=== PATIENT | male | born 1975 | race Caucasian/White ===

== ENCOUNTER 2017-01-17 13:13 | Observation (INO) | payer OTHER ==
[~2017-01-17] VITALS: Ht 188 cm; Wt 97.7 kg
[2017-01-17 13:14] VITALS: BP 140/97; PULSE 80; RESP 18; TEMP 98.7; O2SAT 100
[2017-01-17 13:51] VITALS: BP 155/100; PULSE 71; RESP 20; O2SAT 100
--- NOTE | 2017-01-17 13:57 | RADRPT ---
EXAM DATE/TIME: 01/17/2017 13:35 [place] COMPARISON: No previous studies available for comparison. INDICATIONS : Chest pain and tingling sensation in arms and legs during treadmill workout. MEDICAL HISTORY : Former smoker. SURGICAL HISTORY : None. ENCOUNTER: Initial ACUITY: 1 day PAIN SCORE: 4/10 LOCATION: middle chest FINDINGS: PA and lateral views of the chest demonstrate the lungs to be symmetrically aerated without evidence of mass, infiltrate or effusion. The cardiomediastinal contours are unremarkable. Osseous structure s are intact. CONCLUSION: Normal examination. Alvaro Galeana Jr., MD on January 17, 2017 at 13:53 Board Certified Radiologist. This report was verified electronically.
--- NOTE | 2017-01-17 13:57 | PD ---
HPI Chief Complaint: Chest Pain Time Seen by Provider: 13:49 Travel History International Travel<30 days: No Contact w/Intl Traveler<30days: No Traveled to known affect area: No History of Present Illness HPI 41 yo m presents to the ED with a chief complaint of chest pain that began while he was on the elliptical machine at the gym He states that the pain was located in the center of his chest without radiation. He did have associated numbness in bilateral arms and legs. No nausea vomiting or diarrhea, no headache or vision change. No pain radiating to the back. No shortness of breath. The patient reports that he has family history in his grandfather and uncle of heart disease. No personal history of coronary artery disease. [facility] Social History Tobacco Use: No Allergies-Medications (Allergen,Severity, Reaction): Coded Allergies: No Known Allergies (Unverified , 01/17/17) Reported Meds & Prescriptions Reported Meds & Active Scripts Active No Active Prescriptions or Reported Medications Review of Systems Except as stated in HPI: all other systems reviewed are Neg General / Constitutional: No: Fever, Chills HENT: No: Headaches, Lightheadedness Cardiovascular: Positive: Chest Pain or Discomfort, No: Irregular Rhythm Respiratory: No: Cough, Shortness of Breath Gastrointestinal: No: Nausea, Vomiting, Abdominal Pain Musculoskeletal: No: Weakness, Pain Neurologic: Positive: Other (reports numbness and tingling to his arms and legs when he had the discomfort.), No: Headache Physical Exam Narrative GENERAL: patient is laying in bed in no acute distress. SKIN: Warm and dry. HEAD: Atraumatic. Normocephalic. EYES: Pupils equal and round. No scleral icterus. No injection or drainage. ENT: No nasal bleeding or discharge. Mucous membranes pink and moist. NECK: Trachea midline. Supple. CARDIOVASCULAR: Regular rate and rhythm. RESPIRATORY: No accessory muscle use. Clear to auscultation. Breath sounds equal bilaterally. GASTROINTESTINAL: Abdomen soft, non-tender, nondistended. Hepatic and splenic margins not palpable. MUSCULOSKELETAL: Extremities without clubbing, cyanosis, or edema. No obvious deformities. NEUROLOGICAL: Awake and alert. No obvious cranial nerve deficits. Motor grossly within normal limits. Five out of 5 muscle strength in the arms and legs. Normal speech. PSYCHIATRIC: Appropriate mood and affect; insight and judgment normal. Data Data Last Documented VS Vital Signs Date Time Temp Pulse Resp B/P (MAP) Pulse Ox O2 Delivery O2 Flow Rate FiO2 01/17/17 16:05 71 15 131/81 (98) 99 Room Air 01/17/17 13:51 2.00 01/17/17 13:14 98.7 Orders Orders Electrocardiogram (01/17/17 13:26) Basic Metabolic Panel (Bmp) (01/17/17 13:26) Ckmb (Isoenzyme) Profile (01/17/17 13:26) Complete Blood Count With Diff (01/17/17 13:26) Magnesium (Mg) (01/17/17 13:26) Prothrombin Time / Inr (Pt) (01/17/17 13:26) Act Partial Throm Time (Ptt) (01/17/17 13:26) Troponin I (01/17/17 13:26) Chest, Pa & Lat (01/17/17 13:26) CKMB (01/17/17 13:40) CKMB% (01/17/17 13:40) Admit Order (Ed Use Only) (01/17/17 17:23) Activity Bed Rest With Brp (01/17/17 17:23) Vital Signs (Adult) Q4H (01/17/17 17:23) Cardiac Rhythm .As Directed (01/17/17 17:23) Notify Dr: Other .PRN (01/17/17 17:23) Notify DrPola Parameters (01/17/17 17:23) Resp Oxygen Nasal Cannula (01/17/17 ) Ckmb (Isoenzyme) Profile (01/17/17 17:23) Ckmb (Isoenzyme) Profile (01/17/17 20:23) Troponin I (01/17/17 17:23) Troponin I (01/17/17 20:23) Electrocardiogram (01/17/17 17:23) Electrocardiogram (01/17/17 20:23) ^ Obtain (01/17/17 17:23) Sodium Chloride 0.9% Flush (Ns Flush) (01/17/17 17:30) Sodium Chloride 0.9% Flush (Ns Flush) (01/17/17 21:00) 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 / Telemetry TRISTA.Q8H (01/17/17 17:23) Labs Laboratory Tests Test 01/17/17 13:40 White Blood Count 7.8 TH/MM3 Red Blood Count 4.39 MIL/MM3 Hemoglobin 13.7 GM/DL Hematocrit 39.8 % Mean Corpuscular Volume 90.6 FL Mean Corpuscular Hemoglobin 31.3 PG Mean Corpuscular Hemoglobin Concent 34.5 % Red Cell Distribution Width 12.7 % Platelet Count 246 TH/MM3 Mean Platelet Volume 8.0 FL Neutrophils (%) (Auto) 71.3 % Lymphocytes (%) (Auto) 21.4 % Monocytes (%) (Auto) 6.1 % Eosinophils (%) (Auto) 0.7 % Basophils (%) (Auto) 0.5 % Neutrophils # (Auto) 5.6 TH/MM3 Lymphocytes # (Auto) 1.7 TH/MM3 Monocytes # (Auto) 0.5 TH/MM3 Eosinophils # (Auto) 0.1 TH/MM3 Basophils # (Auto) 0.0 TH/MM3 CBC Comment DIFF FINAL Differential Comment Prothrombin Time 10.9 SEC Prothromb Time International Ratio 1.0 RATIO Activated Partial Thromboplast Time 26.8 SEC Blood Urea Nitrogen 14 MG/DL Creatinine 1.08 MG/DL Random Glucose 89 MG/DL Calcium Level 8.8 MG/DL Magnesium Level 2.0 MG/DL Sodium Level 138 MEQ/L Potassium Level 4.1 MEQ/L Chloride Level 103 MEQ/L Carbon Dioxide Level 28.4 MEQ/L Anion Gap 7 MEQ/L Estimat Glomerular Filtration Rate 75 ML/MIN Total Creatine Kinase 174 U/L Creatine Kinase MB 1.8 NG/ML Troponin I LESS THAN 0.02 NG/ML MDM Medical Decision Making Medical Screen Exam Complete: Yes Emergency Medical Condition: Yes Differential Diagnosis ACS unlikely, Angina, Costochondritis, intercostal spasm, Unlikely: thoracic aortic aneurysm dissection, pancreatitis, GERD Narrative Course ASA, Nitroglycerine, CXR, EKG, CBC, CMP, Troponin I, CKMB sent. 41-year-old male presents today with complaints of chest pressure while working out on his elliptical exercise equipment. The patient had associated bilateral numbness and tingling to his arms and legs during this event. The patient is chest pain- free now at this time. He has no personal cardiac risk factors. The patient does have family history with grandfather and uncle with coronary artery disease. Given his exertional onset of chest discomfort, we will admit him to the chest pain center for rule out protocol. Diagnosis Primary Impression: Exertional chest pain Additional Impression: bilateral upper and lower extremity paresthesias, resolved Admitting Information Admitting Physician Requests: Observation Scripts No Active Prescriptions or Reported Meds Aníbal Foster MD Jan 17, 2017 13:57
[2017-01-17 14:08] LABS: AUTOMATED NEUTROPHIL # 5.6 TH/MM3 (1.8-7.7); BASOPHIL % 0.5 % (0.0-2.0); EOSINOPHIL # 0.1 TH/MM3 (0-0.4); EOSINOPHIL % 0.7 % (0.0-4.0); HEMATOCRIT 39.8 % (39.0-51.0); HEMO FLAGS DIFF FINAL; LYMPH % 21.4 % (9.0-44.0); LYMPHOCYTE # 1.7 TH/MM3 (1.0-4.8); MEAN CELL VOLUME 90.6 FL (80.0-100.0); MEAN CORPUSCULAR HEMOGLOBIN 31.3 PG (27.0-34.0); MEAN CORPUSCULAR HGB CONC 34.5 % (32.0-36.0); MONO % 6.1 % (0.0-8.0); NEUT % 71.3 % (16.0-70.0); PLATELET COUNT 246 TH/MM3 (150-450); RED BLOOD COUNT 4.39 MIL/MM3 (4.50-5.90); RED CELL DISTRIBUTION WIDTH 12.7 % (11.6-17.2); WHITE BLOOD COUNT 7.8 TH/MM3 (4.0-11.0)
[2017-01-17 14:16] LABS: APTT (PATIENT) 26.8 SEC (24.3-30.1); PROTHROMBIN TIME - PATIENT 10.9 SEC (9.8-11.6)
[2017-01-17 15:31] LABS: CHLORIDE 103 MEQ/L (98-107); POTASSIUM 4.1 MEQ/L (3.5-5.1); SODIUM (NA) 138 MEQ/L (136-145)
[2017-01-17 15:49] LABS: ANION GAP 7 MEQ/L (5-15); BICARBONATE 28.4 MEQ/L (21.0-32.0); BLOOD UREA NITROGEN 14 MG/DL (7-18); GLOMERULAR FILTRATION RATE 75 ML/MIN (>89)
[2017-01-17 16:03] LABS: CREATINE KINASE 174 U/L (39-308)
[2017-01-17 16:05] VITALS: BP 131/81; PULSE 71; RESP 15; O2SAT 99
[2017-01-17 16:16] LABS: CKMB 1.8 NG/ML (0.5-3.6)
[2017-01-17] MEDS ORDERED: SODIUM CHLORIDE 0.9% FLUSH 10 ML FLUSH IV FLUSH PRN (17:30)
[2017-01-17 18:20] VITALS: BP 133/84
[2017-01-17 18:53] LABS: CREATINE KINASE 153 U/L (39-308)
[2017-01-17 19:05] LABS: CKMB 1.7 NG/ML (0.5-3.6)
[2017-01-17] MEDS ORDERED: SODIUM CHLORIDE 0.9% FLUSH 10 ML FLUSH IV FLUSH SCH (21:00)
[2017-01-17 21:49] VITALS: BP_SYST 135; BP_SYST 148; BP_DIAS 75; BP_DIAS 96; PULSE 61; PULSE 93; RESP 17; TEMP 98; TEMP 98.8; O2SAT 95; O2SAT 97
[2017-01-17 22:33] LABS: CREATINE KINASE 129 U/L (39-308)
[2017-01-17 22:45] LABS: CKMB 1.3 NG/ML (0.5-3.6)
[2017-01-17 23:27] VITALS: BP 122/79; PULSE 61; RESP 18; TEMP 98; O2SAT 96
[2017-01-18] VITALS: PULSE 60
[2017-01-18 03:39] VITALS: PULSE 78
[2017-01-18 04:37] VITALS: BP 134/84; PULSE 68; RESP 18; TEMP 97.7; O2SAT 96
[2017-01-18 08:15] VITALS: BP 140/94; PULSE 68; RESP 18; TEMP 98.1; O2SAT 97
--- NOTE | 2017-01-18 10:01 | HHI.HP ---
HPI Primary Care Physician No Primary Care Physician Chief Complaint Chest pain History of Present Illness This is a 41-year-old male that presents to ED via private vehicle with a complaint of developing a chest discomfort in the center of his chest while he was working out on an elliptical machine. States his heart rate got into the 130s. The discomfort in his chest lasted about 2 hours. He also had sensation of lightheadedness and tingling in his hands and feet which the symptoms seem to last about 5 minutes. He really was not short of breath, nauseous, or diaphoretic. This symptoms have not recurred. Exercise regularly and does not have a she is usually. Denies prior cardiac workup. [place] recent illness. Denies fevers or chills. Review of Systems General: Patient denies fevers, chills recent, and recent travel HEENT: Patient denies headache, sore throat, difficulty swallowing. Cardiovascular: Has the chest discomfort as mentioned above. Denies sensation of heart beating rapidly or irregularly. No syncope. Denies diaphoresis. Respiratory: Denies shortness of breath or inspirational chest discomfort. Denies coughing wheezing or hemoptysis. GI: Patient denies nausea, vomiting, diarrhea, abdominal pain, bloody stools. Musculoskeletal: Patient denies joint pain or edema. Denies calf pain or edema. Neurovascular: Had tingling in his hands and feet and felt lightheaded. Patient denies numbness, weakness in extremities. Denies headache. Endocrine: Denies polyuria and polydipsia. Hematologic: Denies easy bruising. Skin: Denies rash or itching. Past Family Social History Allergies: Coded Allergies: No Known Allergies (Unverified , 01/17/17) Past Medical History Denies hypertension, hyperlipidemia, diabetes, and CAD. Past Surgical History 2 back surgeries. Reported Medications Reported Meds & Active Scripts Active No Active Prescriptions or Reported Medications Active Ordered Medications Current Medications Medications (Trade) Dose Ordered Sig/Marc Route Start Time Stop Time Status Last Admin (NS Flush) 2 ml UNSCH PRN IV FLUSH 01/17/17 17:30 (NS Flush) 2 ml BID IV FLUSH 01/17/17 21:00 01/17/17 21:00 Family History Denies family history of CAD. Social History Patient states that he has had no cigarettes for about 9 months but prior that he rarely smoked. He states he may have 1 cigarette per month at most. Has on average a couple glasses of wine a week. Denies illicit drugs. 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 Physical Exam Vital Signs Vital Signs Date Time Temp Pulse Resp B/P (MAP) Pulse Ox O2 Delivery O2 Flow Rate FiO2 01/18/17 08:15 98.1 68 18 140/94 (109) 97 01/18/17 04:37 97.7 68 18 134/84 (101) 96 01/18/17 03:39 78 01/18/17 01:46 21 01/18/17 00:00 60 01/17/17 23:27 98.0 61 18 122/79 (93) 96 01/17/17 21:49 98.0 61 17 148/96 (113) 97 01/17/17 18:20 75 16 133/84 (100) 98 01/17/17 16:05 71 15 131/81 (98) 99 Room Air 01/17/17 13:51 71 20 155/100 (118) 100 Nasal Cannula 2.00 01/17/17 13:14 98.7 80 18 140/97 (111) 100 Room Air Physical Exam GENERAL: This is a well-nourished, well-developed patient, in no apparent distress. Patient speaks in clear complete sentences. Patient is pleasant. HEENT: Head is atraumatic and normocephalic. Neck is supple without lymphadenopathy and trachea is midline. No JVD or carotid bruits. CARDIOVASCULAR: Regular rate and rhythm without murmurs, gallops, or rubs. RESPIRATORY: Clear to auscultation. Breath sounds equal bilaterally. No wheezes , rales, or rhonchi. Chest wall is nontender. No use of accessory muscles. GASTROINTESTINAL: Abdomen is nontender, nondistended. Abdomen soft. No obvious pulsatile mass or bruit. No CVA tenderness. Strong femoral pulses bilaterally. Normal bowel sounds in all quadrants. MUSCULOSKELETAL: Patient is moving upper and lower extremities freely. No calf tenderness or edema, no Homans sign. Strong pulses in upper and lower extremities. NEUROLOGICAL: Patient is alert and oriented. Cranial nerves 2-12 are grossly intact. No focal deficits and speech is clear. SKIN: No rash and turgor is normal. Laboratory Laboratory Tests Test 01/17/17 13:40 01/17/17 17:40 01/17/17 21:00 White Blood Count 7.8 Red Blood Count 4.39 Hemoglobin 13.7 Hematocrit 39.8 Mean Corpuscular Volume 90.6 Mean Corpuscular Hemoglobin 31.3 Mean Corpuscular Hemoglobin Concent 34.5 Red Cell Distribution Width 12.7 Platelet Count 246 Mean Platelet Volume 8.0 Neutrophils (%) (Auto) 71.3 Lymphocytes (%) (Auto) 21.4 Monocytes (%) (Auto) 6.1 Eosinophils (%) (Auto) 0.7 Basophils (%) (Auto) 0.5 Neutrophils # (Auto) 5.6 Lymphocytes # (Auto) 1.7 Monocytes # (Auto) 0.5 Eosinophils # (Auto) 0.1 Basophils # (Auto) 0.0 CBC Comment DIFF FINAL Differential Comment Prothrombin Time 10.9 Prothromb Time International Ratio 1.0 Activated Partial Thromboplast Time 26.8 Blood Urea Nitrogen 14 Creatinine 1.08 Random Glucose 89 Calcium Level 8.8 Magnesium Level 2.0 Sodium Level 138 Potassium Level 4.1 Chloride Level 103 Carbon Dioxide Level 28.4 Anion Gap 7 Estimat Glomerular Filtration Rate 75 Total Creatine Kinase 174 153 129 Creatine Kinase MB 1.8 1.7 1.3 Troponin I LESS THAN 0.02 LESS THAN 0.02 LESS THAN 0.02 Result Diagram: 01/17/17 1340 01/17/17 1340 Imaging Last 48 hours Impressions Chest X-Ray 01/17/17 1326 Signed Impressions: Service Date/Time: Tuesday, January 17, 2017 13:35 - CONCLUSION: Normal examination. Alvaro Galeana Jr., MD Course EKGs have sinus rhythm without significant ST segment depressions or elevations. Caprini VTE Risk Assessment Caprini VTE Risk Assessment: No/Low Risk (score <= 1) Caprini Risk Assessment Model Point Value = 1 Point Value = 2 Point Value = 3 Point Value = 5 Age 41-60 Minor surgery BMI > 25 kg/m2 Swollen legs Varicose veins or History of unexplained or recurrent spontaneous Oral contraceptives or hormone replacement Sepsis (< 1 month) Serious lung disease, including pneumonia (< 1 month) Abnormal pulmonary function Acute myocardial infarction Congestive heart failure (< 1 month) History of inflammatory bowel disease Medical patient at bed rest Age 61-74 Arthroscopic surgery Major open surgery (> 45 min) Laparoscopic surgery (> 45 min) Malignancy Confined to bed (> 72 hours) Immobilizing plaster cast Central venous access Age >= 75 History of VTE Family history of VTE Factor V Leiden Prothrombin [id number] Lupus anticoagulant Anticardiolipin antibodies Elevated serum homocysteine Heparin-induced thrombocytopenia Other congenital or acquired thrombophilia Stroke (< 1 month) Elective arthroplasty Hip, pelvis, or leg fracture Acute spinal cord injury (< 1 month) Prophylaxis Regimen Total Risk Factor Score Risk Level Prophylaxis Regimen 0-1 Low Early ambulation 2 Moderate Order ONE of the following: *Sequential Compression Device (SCD) *Heparin 5000 units SQ BID 3-4 Higher Order ONE of the following medications: *Heparin 5000 units SQ TID *Enoxaparin/Lovenox 40 mg SQ daily (WT < 150 kg, CrCl > 30 mL/min) *Enoxaparin/Lovenox 30 mg SQ daily (WT < 150 kg, CrCl > 10-29 mL/min) *Enoxaparin/Lovenox 30 mg SQ BID (WT < 150 kg, CrCl > 30 mL/min) AND/OR *Sequential Compression Device (SCD) 5 or more Highest Order ONE of the following medications: *Heparin 5000 units SQ TID (Preferred with Epidurals) *Enoxaparin/Lovenox 40 mg SQ daily (WT < 150 kg, CrCl > 30 mL/min) *Enoxaparin/Lovenox 30 mg SQ daily (WT < 150 kg, CrCl > 10-29 mL/min) *Enoxaparin/Lovenox 30 mg SQ BID (WT < 150 kg, CrCl > 30 mL/min) AND *Sequential Compression Device (SCD) Assessment and Plan Assessment and Plan * Chest pain: Patient has had serial cardiac enzymes and EKGs for ruling out purposes. He has been seen by Dr. Rey cardiology in the chest pain center and will undergo a Ari protocol ETT. He will be discharged home if the stress test is nonischemic with instructions to follow-up with PCP. Return to ED for interval issues. Patient is stable at this time. He is agreeable to this plan. Jamie Asif Jan 18, 2017 10:01
--- NOTE | 2017-01-18 10:05 | HHI.DCPOC ---
Discharge Care Plan Diagnosis: (1) Chest pain Goals to Promote Your Health * To prevent worsening of your condition and complications * To maintain your health at the optimal level Directions to Meet Your Goals Take your medications as prescribed Follow your dietary instruction Follow activity as directed Keep your appointments as scheduled Take your immunizations and boosters as scheduled If your symptoms worsen call your PCP, if no PCP go to Urgent Care Center or Emergency Room Smoking is Dangerous to Your Health. Avoid second hand smoke Call the 24-hour hour crisis hotline for domestic abuse at Jamie Asif Jan 18, 2017 10:05
--- NOTE | 2017-01-18 10:20 | TR ---
Date Performed: 01/18/2017 Time Performed: 09:27:16 DOCTOR: Marquita Rey DRUG LIST: CLINICAL HISTORY: REASON FOR TEST: REASON FOR ENDING: OBSERVATION: CONCLUSION: No ischemia COMMENTS:
[2017-01-18 10:24] VITALS: PULSE 71
--- NOTE | 2017-01-18 21:57 | EKG ---
Date Performed: 01/17/2017 Time Performed: 23:15:56 PTAGE: 41 years EKG: SINUS BRADYCARDIA POSSIBLE RIGHT VENTRICULAR CONDUCTION DELAY BORDERLINE ECG Since PREVIOUS TRACING , no significant change noted PREVIOUS TRACIN01/17/2017 17.42 DOCTOR: Marquita Rey Interpretating Date/Time 01/18/2017 21:56:11
--- NOTE | 2017-01-18 22:02 | EKG ---
Date Performed: 01/17/2017 Time Performed: 17:42:30 PTAGE: 41 years EKG: Sinus rhythm POSSIBLE RIGHT VENTRICULAR CONDUCTION DELAY BORDERLINE ECG Since PREVIOUS TRACING , no significant change noted PREVIOUS TRACIN01/17/2017 17.40 DOCTOR: Marquita Rey Interpretating Date/Time 01/19/2017 07:14:21
--- NOTE | 2017-01-18 22:05 | EKG ---
Date Performed: 01/17/2017 Time Performed: 13:50:16 PTAGE: 41 years EKG: Sinus rhythm POSSIBLE RIGHT VENTRICULAR CONDUCTION DELAY BORDERLINE ECG NO PREVIOUS TRACING DOCTOR: Marquita Rey Interpretating Date/Time 01/18/2017 22:03:39
== END 2017-01-18 10:42 | disposition home or self-care (01) ==
LOC: NEPC 13:13 → NEDA 17:27 → NEPGCP 19:17
PROVIDERS: ADMIT Internal Medicine Cardiovascular Disease; ATTEND Internal Medicine Cardiovascular Disease
DX: R07.9 Chest pain, unspecified (principal); R20.2 Paresthesia of skin; R20.0 Anesthesia of skin; Z82.49 Family history of ischemic heart disease and other diseases of the circulatory system; R42 Dizziness and giddiness; R00.1 Bradycardia, unspecified; Z87.891 Personal history of nicotine dependence
CPT/HCPCS: 71020; 80048; 82550; 82552; 83735; 84484; 85025; 85610; 85730; 93005; 93017; 99285; G0378